=== PATIENT | male | born 1955 | race Caucasian/White ===

== ENCOUNTER 2017-06-23 11:12 | Day surgery (SDC) | payer BC, OTHER ==
[~2017-06-23 11:12] MED LIST: Lactated Ringers 1,000 ML IV SCH; Propofol 200 MG/20 ML SDV ONE; Sodium Chloride 0.9% 10 ML Syringe FLUSH PRN; Sodium Chloride 0.9% 2.5 ML Syringe FLUSH PRN
--- NOTE | 2017-06-23 11:51 | PCM.PREANE ---
Preanesthetic Assessment - Anesthesia/Transfusion/Family Hx Anesthesia History: Prior Anesthesia Without Reaction Family History of Anesthesia Reaction: No Transfusion History: No Prior Transfusion(s) Intubation History: Unknown - Review of Systems General: No Symptoms Pulmonary: No Symptoms Cardiovascular: No Symptoms Gastrointestinal: Other (screening colonoscopy) Neurological: No Symptoms Other: Reports: None - Physical Assessment O2 Sat by Pulse Oximetry: 94 Respiratory Rate: 16 Vital Signs: Last Vital Signs Temp 36.1 C 06/23/17 11:28 Pulse 57 L 06/23/17 11:28 Resp 16 06/23/17 11:28 BP 145/77 H 06/23/17 11:28 Pulse Ox 94 L 06/23/17 11:28 Height: 1.68 m Weight: 93.44 kg ASA Class: 2 Mental Status: Alert & Oriented x3 Airway Class: Mallampati = 2 Dentition: Reports: Normal Dentition, Implants (x1 lower left (back)) Thyro-Mental Finger Breadths: 3 Mouth Opening Finger Breadths: 2 ROM/Head Extension: Full Lungs: Clear to Auscultation, Normal Respiratory Effort Cardiovascular: Regular Rate, Regular Rhythm - Allergies Allergies/Adverse Reactions: Allergies Allergy/AdvReac Type Severity Reaction Status Date / Time doxazosin Allergy Nausea and Verified 06/19/17 09:55 Vomiting - Blood Blood Available: No - Anesthesia Plan Pre-Op Medication Ordered: None - Acknowledgements Anesthesia Type Planned: MAC Pt an Appropriate Candidate for the Planned Anesthesia: Yes Alternatives and Risks of Anesthesia Discussed w Pt/Guardian: Yes Pt/Guardian Understands and Agrees with Anesthesia Plan: Yes PreAnesthesia Questionnaire HEENT History: Reports: Hard of Hearing, Other (See Below) Other HEENT History: wears glasses, has Keratoconus, one lower dental implant , and wears bilateral hearing aides Cardiovascular History: Reports: High Cholesterol, Hypertension Respiratory History: Reports: Other (See Below) Other Respiratory History: has requested a sleep apnea test Gastrointestinal History: Reports: GERD Genitourinary History: Reports: BPH Musculoskeletal History: Reports: Arthritis Neurological History: Reports: Concussion Endocrine/Metabolic History: Reports: Obesity/BMI 30+ - Past Surgical History Head Surgeries/Procedures: Reports: None HEENT Surgical History: Reports: Oral Surgery, Tonsillectomy Other HEENT Surgeries/Procedures: has one dental implant - SUBSTANCE USE Smoking Status *Q: Never Smoker Recreational Drug Use History: No - HOME MEDS Home Medications: Home Meds Losartan/Hydrochlorothiazide [Losartan-HCTZ 100-25 MG] 1 tab PO DAILY 06/19/17 [ History] Nebivolol [Bystolic] 5 mg PO DAILY 06/19/17 [History] Omeprazole 20 mg PO DAILY 06/19/17 [History] Pravastatin Sodium 20 mg PO DAILY 06/19/17 [History] Sildenafil Citrate [Sildenafil] 40 mg PO ASDIRECTED PRN 06/19/17 [History] Tamsulosin HCl 0.4 mg PO DAILY 06/19/17 [History] - CURRENT (IN HOUSE) MEDS Current Meds: Current Medications Lactated Ringer's (Ringers, Lactated) 1,000 mls @ 125 mls/hr IV ASDIRECTED ISAURA Last Admin: 06/23/17 11:32 Dose: 125 mls/hr Sodium Chloride (Saline Flush) 10 ml FLUSH ASDIRECTED PRN PRN Reason: Keep Vein Open Sodium Chloride (Saline Flush) 2.5 ml FLUSH ASDIRECTED PRN PRN Reason: Keep Vein Open Sodium Chloride (Saline Flush) 10 ml FLUSH ASDIRECTED PRN PRN Reason: Keep Vein Open Sodium Chloride (Saline Flush) 2.5 ml FLUSH ASDIRECTED PRN PRN Reason: Keep Vein Open Discontinued Medications Lidocaine HCl (Xylocaine-Mpf 1%) Confirm Administered Dose 5 ml .ROUTE .STK-MED ONE Stop: 06/23/17 09:52 Propofol (Diprivan 20 Ml) Confirm Administered Dose 400 mg .ROUTE .STK-MED ONE Stop: 06/23/17 09:52
--- NOTE | 2017-06-23 14:24 | PCM.OPNOTE ---
- General Post-Op/Procedure Note Date of Surgery/Procedure: 06/23/17 Operative Procedure(s): Screening colonoscopy Findings: Normal colonoscopy Pre Op Diagnosis: Screening colonoscopy Post-Op Diagnosis: normal colonoscopy Anesthesia Technique: MAC Primary Surgeon: Jhoana South Condition: Good
--- NOTE | 2017-06-23 17:07 | OR ---
SURGEON: JAMES GUEVARA MD DATE OF PROCEDURE: 06/23/2017 PREOPERATIVE DIAGNOSIS: Screening colonoscopy. POSTOPERATIVE DIAGNOSIS: Normal colonoscopy. PROCEDURE PERFORMED: Screening colonoscopy. ANESTHESIA: MAC. INSTRUMENT USED: Olympus colonoscope. EXTENT OF EXAM: To the cecum. PREPARATION: Good. LIMITATIONS: None. INDICATION FOR EXAMINATION: The patient is a 61-year-old male, who presents for screening colonoscopy. We discussed the procedure, expected perioperative course, and risks including bleeding, infection, or damage to surrounding structures including perforation. The patient verbalized understanding and wishes to proceed. PROCEDURE IN DETAIL: The patient was brought to the endoscopy suite and placed in the left lateral decubitus position. A time-out was completed verifying the patient's name, age, date of , allergies, and procedure to be performed. Monitored anesthesia care was induced and continuous oxygen was provided via nasal cannula throughout the procedure. After adequate sedation was achieved, a digital rectal exam was performed. This exam was within normal limits. A well lubricated colonoscope was inserted in the rectum and advanced under direct visualization to the level of the cecum. The cecum was identified by both visual and anatomic landmarks. A photograph was taken of the cecal cap as well as with the scope retroflexed within the cecum. The scope was then fully withdrawn while examining the color, texture, anatomy, and integrity of the mucosa from the cecum to the anal canal. The patient was found to have normal colonic mucosa. The scope was brought into the rectum and retroflexed to allow visualization of the anal canal opening. This appeared normal and a photograph was taken. The scope was then straightened out and removed from the patient. The patient tolerated the procedure well and was transferred to the PACU in stable condition. ENDOSCOPIC DIAGNOSIS: Normal colonoscopy. RECOMMENDATIONS: Follow up in clinic in 10 years. RUIZ JARAMILLO /[id number]
== END 2017-06-23 13:27 | disposition home or self-care (01) ==
LOC: MW.SDS 11:12
PROVIDERS: ATTEND Surgery
DX: Z12.11 Encounter for screening for malignant neoplasm of colon (principal); K21.9 Gastro-esophageal reflux disease without esophagitis; I10 Essential (primary) hypertension; E78.5 Hyperlipidemia, unspecified; Z79.899 Other long term (current) drug therapy; Z98.890 Other specified postprocedural states
CPT/HCPCS: 45378; J7120; 00812; J2704

== ENCOUNTER 2019-05-09 11:39 | Emergency (ER) | payer BC ==
--- NOTE | 2019-05-09 12:34 | EDM.PDOC ---
ED HPI GENERAL MEDICAL PROBLEM - General Chief Complaint: Skin Complaint Stated Complaint: RASH, HANDS SWELLED Time Seen by Provider: 05/09/19 12:23 Source of Information: Reports: Patient, Family - History of Present Illness INITIAL COMMENTS - FREE TEXT/NARRATIVE: Patient and his state patient has had a pruritic rash which began about a week ago, after he ate jalapenos. He denies having had swelling of his lips, face, or mouth. No nausea or vomiting. No wheezing or shortness of breath. He does have a pruritic rash that has become generalized. No prior episodes of this. He tried [id number] Benadryl; he has taken 2 tabs in the past few days. He also tried topical Benadryl. He said it made the rash a little better but it never fully resolved. bilateral hand Pain Score (Numeric/FACES): 10 - Related Data Allergies Allergy/AdvReac Type Severity Reaction Status Date / Time doxazosin Allergy Hives Verified 05/09/19 12:24 Home Meds: Home Meds Losartan/Hydrochlorothiazide [Losartan-HCTZ 100-25 MG] 1 tab PO DAILY 06/19/17 [ History] Nebivolol [Bystolic] 5 mg PO DAILY 06/19/17 [History] Omeprazole 20 mg PO DAILY 06/19/17 [History] Pravastatin Sodium 20 mg PO DAILY 06/19/17 [History] Sildenafil Citrate 40 mg PO ASDIRECTED PRN 06/19/17 [History] Tamsulosin HCl 0.4 mg PO DAILY 06/19/17 [History] Famotidine [Pepcid] 20 mg PO BID #6 tab 05/09/19 [Rx] predniSONE [Prednisone] 40 mg PO DAILY 3 Days #6 tablet 05/09/19 [Rx] Past Medical History HEENT History: Reports: Hard of Hearing, Other (See Below) Other HEENT History: wears glasses, has Keratoconus, one lower dental implant , and wears bilateral hearing aides Cardiovascular History: Reports: High Cholesterol, Hypertension Respiratory History: Reports: Other (See Below) Other Respiratory History: has requested a sleep apnea test Gastrointestinal History: Reports: GERD Genitourinary History: Reports: BPH Musculoskeletal History: Reports: Arthritis Neurological History: Reports: Concussion Endocrine/Metabolic History: Reports: Obesity/BMI 30+ - Past Surgical History Head Surgeries/Procedures: Reports: None HEENT Surgical History: Reports: Oral Surgery, Tonsillectomy Other HEENT Surgeries/Procedures: has one dental implant ED ROS GENERAL - Review of Systems Review Of Systems: See Below Constitutional: Denies: Fever, Chills HEENT: Denies: Eye Pain, Throat Swelling Respiratory: Denies: Shortness of Breath, Wheezing, Cough GI/Abdominal: Denies: Abdominal Pain, Nausea, Vomiting Skin: Reports: Pruritis, Rash, Urticaria Neurological: Denies: Dizziness, Headache, Numbness ED EXAM, SKIN/RASH Exam: See Below Text/Narrative:: General: alert, well appearing, no acute distress HEENT: Atraumatic, normocephalic, pupils reactive, negative for conjunctival pallor or scleral icterus, mucous membranes moist, throat clear, handling oral secretions well. There is no facial swelling. There is no intraoral swelling. No intraoral lesions. Neck: supple, nontender, trachea midline. Lungs: Clear to auscultation, breath sounds equal bilaterally, chest nontender. Heart: S1S2, regular, negative for clicks, rubs, or JVD. Abdomen: Soft, nondistended, nontender. Negative for masses or hepatosplenomegaly. Skin: warm, dry, good turgor. Maculopapular blanching rash involving face, each extremity, neck, and trunk of the body. Musculoskeletal: soft compartments. There is some edema of the hands. Patient has a ring on his fourth left finger. The ring is easily moved and is not constricting the digit, but the patient is unable to remove the ring.. Extremities: Atraumatic, negative for cords or calf pain. Neurovascular unremarkable. Neuro: Awake, alert, oriented. Cranial nerves II through XII unremarkable. Cerebellum unremarkable. Motor and sensory unremarkable throughout. Exam nonfocal. Course - Vital Signs Text/Narrative:: 2:10pm Pt was given Benadryl, Solu-Medrol, and Pepcid. Patient's rash is improved after the Benadryl, Solu-Medrol, and Pepcid. Also, earlier during this visit, it was noted that patient's ring was stuck on his fourth left digit. Prior to administration of Solu-Medrol, attempts were made to remove the ring manually, then by pulling the string, and also with ring cutter. None of these maneuvers were successful. Subsequent to administration of the Solu-Medrol, there was less swelling of the hand. Two of our staff nurses were able to remove the patient's ring without any further damage to it. There are some berry in the ring from where we tried removing it with a ring cutter, but the ring did not have to be cut all the way through. Patient's fourth digit remains warm and well perfused. There is again considerably less edema after the Solu-Medrol, and there is no evidence of abrasion or other injury to the finger resulting from attempts to remove the ring. Last Recorded V/S: Last Vital Signs Temp 98.0 F 05/09/19 14:45 Pulse 81 05/09/19 14:45 Resp 16 05/09/19 12:20 BP 127/84 05/09/19 14:45 Pulse Ox 94 L 05/09/19 14:45 - Orders/Labs/Meds Orders: Active Orders 24 hr Category Date Time Status Ready for Discharge [RC] PER UNIT ROUTINE Care 05/09/19 14:28 Active Meds: Medications Discontinued Medications Generic Name Dose Route Start Last Admin Trade Name Rezaq PRN Reason Stop Dose Admin Diphenhydramine HCl 50 mg 05/09/19 13:04 05/09/19 13:11 Benadryl IVPUSH 05/09/19 13:05 50 mg ONETIME ONE Administration Famotidine 20 mg 05/09/19 13:04 05/09/19 13:11 Pepcid IVPUSH 05/09/19 13:05 20 mg ONETIME ONE Administration Methylprednisolone Sodium Succinate 125 mg 05/09/19 13:04 05/09/19 13:11 Solu-Medrol IVPUSH 05/09/19 13:05 125 mg ONETIME ONE Administration Departure - Departure Time of Disposition: 14:26 Disposition: Home, Self-Care 01 Condition: Good Clinical Impression: Allergic reaction Qualifiers: Encounter type: initial encounter Qualified Code(s): T78.40XA - Allergy, unspecified, initial encounter - Discharge Information Prescriptions: Famotidine [Pepcid] 20 mg PO BID #6 tab predniSONE [Prednisone] 40 mg PO DAILY 3 Days #6 tablet Instructions: Allergies, Adult Referrals: Bruce Carlson MD [Primary Care Provider] - 3 Days (See your family physician within 3 days of this emergency department visit.) Forms: ED Department Discharge Additional Instructions: Avoid eating any more jalapenos. Please take the following medications: 1. Benadryl 50 mg take 2 of the 25 mg over the counter tablets every 6 hours for the next 3 days. 2. Prednisone 40 mg 2 of the 20 mg tablets once a day for 3 days. 3. Pepcid 20 mg 1 of the 20 mg tablets twice a day for the next 3 days. The following information is given to patients seen in the emergency department who are being discharged to home. This information is to outline your options for follow-up care. We provide all patients seen in our emergency department with a follow-up referral. The need for follow-up, as well as the timing and circumstances, are variable depending upon the specifics of your emergency department visit. If you don't have a primary care physician on staff, we will provide you with a referral. We always advise you to contact your personal physician following an emergency department visit to inform them of the circumstance of the visit and for follow-up with them and/or the need for any referrals to a consulting specialist. The emergency department will also refer you to a specialist when appropriate. This referral assures that you have the opportunity for follow-up care with a specialist. All of these measure are taken in an effort to provide you with optimal care, which includes your follow-up. Under all circumstances we always encourage you to contact your private physician who remains a resource for coordinating your care. When calling for follow-up care, please make the office aware that this follow-up is from your recent emergency room visit. If for any reason you are refused follow-up, please contact the [facility] at and ask to speak to the emergency department charge nurse. Sepsis Event Note - Focused Exam Vital Signs: Vital Signs Temp Pulse Resp BP Pulse Ox 05/09/19 14:45 98.0 F 81 127/84 94 L 05/09/19 12:20 97.9 F 88 16 119/80 95 Date Exam was Performed: 05/09/19 Time Exam was Performed: 20:17 - My Orders Last 24 Hours: My Active Orders 05/09/19 14:28 Ready for Discharge [RC] PER UNIT ROUTINE - Assessment/Plan Last 24 Hours: My Active Orders 05/09/19 14:28 Ready for Discharge [RC] PER UNIT ROUTINE
[2019-05-09] MEDS ORDERED: Famotidine 20 MG/2 ML SDV IVPUSH ONE (13:04)
[2019-05-09] MEDS ORDERED: diphenhydrAMINE 50 MG/ML SDV IVPUSH ONE (13:04)
[2019-05-09] MEDS ORDERED: methylPREDNISolone Sodium Succinate 125 MG/2 ML SDV IVPUSH ONE (13:04)
== END 2019-05-09 14:57 | disposition home or self-care (01) ==
LOC: MW.ED 11:39
DX: T78.1XXA Other adverse food reactions, not elsewhere classified, initial encounter (principal); E78.00 Pure hypercholesterolemia, unspecified; I10 Essential (primary) hypertension; K21.9 Gastro-esophageal reflux disease without esophagitis; N40.0 Benign prostatic hyperplasia without lower urinary tract symptoms; E66.9 Obesity, unspecified; Z68.32 Body mass index [BMI] 32.0-32.9, adult; Z88.8 Allergy status to other drugs, medicaments and biological substances; Z79.899 Other long term (current) drug therapy
CPT/HCPCS: 96374; 96375; 99282; J1200; J2930; S0028; 99283; J3490